=== PATIENT | male | born 1975 | race Two or more races ===

== ENCOUNTER 2016-07-31 11:15 | Inpatient (IN) | payer OTHER ==
[2016-07-31] VITALS (10 sets, daily range): BP systolic 108–115; BP diastolic 56–72
[~2016-07-31] VITALS: Ht 182.9 cm; Wt 86.2 kg
[~2016-07-31 11:15] MED LIST: ceFAZolin 2gm/50ml Premix 50 ML IVPB ONE
[2016-07-31] MEDS ORDERED: NKM (12:02)
--- NOTE | 2016-07-31 14:04 | Diagnostic Imaging Report ---
Indication: PAIN Technique: Flexion and extension views of the lumbar spine Comparison: None Findings: Bony alignment is normal. No significant change in bony alignment between flexion and extension is demonstrated. Vertebral body heights are preserved. Disc spaces are preserved. The included extraspinal soft tissues are unremarkable Impression: No evidence of ligamentous instability
[2016-07-31] MEDS ORDERED: Labetalol 5mg/ml 20ml vial IV PRN (14:15)
[2016-07-31] MEDS ORDERED: Ketorolac 60mg Inj IV PRN (14:15)
[2016-07-31] MEDS ORDERED: Norco 7.5mg/325mg tab ORAL PRN (14:15)
[2016-07-31] MEDS ORDERED: Midazolam 2mg/2ml Inj IVP PRN (14:15)
[2016-07-31] MEDS ORDERED: fentaNYL 100 mcg/2 mL IV PRN (14:15)
[2016-07-31] MEDS ORDERED: DiphenhydrAMINE 50mg/ml Inj IVP PRN (14:15)
[2016-07-31] MEDS ORDERED: LR 1000ml 1,000 ML IVLG SCH (14:15)
[2016-07-31] MEDS ORDERED: Meperidine 25mg/ml Inj IV PRN (14:15)
[2016-07-31] MEDS ORDERED: Oxycodone/Acetaminophen 5-325 ORAL PRN (14:15)
[2016-07-31] MEDS ORDERED: Hydromorphone 0.5mg/0.5ml inj IVP PRN (14:15)
[2016-07-31] MEDS ORDERED: Norco 5mg/325mg tab ORAL PRN (14:15)
[2016-07-31] MEDS ORDERED: LORazepam Inj 2mg/ml 1ml IV PRN (14:15)
[2016-07-31] MEDS ORDERED: Atropine Inj 1mg/10ml Syr IV PRN (14:15)
[2016-07-31] MEDS ORDERED: Metoclopramide 10mg/2ml Inj IVP PRN (14:15)
[2016-07-31] MEDS ORDERED: Ketorolac 30mg Inj IV PRN (14:15)
--- NOTE | 2016-07-31 14:15 | Anethesia Preoperative Eval ---
Anesthesia Pre-op PMH/ROS General Date of Evaluation: Jul 31, 2016 Time of Evaluation: 15:59 Anesthesiologist: Andrés ASA Score: ASA 1 Mallampati Score Class I : Soft palate, uvula, fauces, pillars visible Class II: Soft palate, uvula, fauces visible Class III: Soft palate, base of uvula visible Class IV: Only hard plate visible Mallampati Classification: Class II Surgeon: Rich Diagnosis: Back Pain Surgical Procedure: L1-2 Microdiscectomy, Decompression Family History: no anesthesia problems Allergies: Coded Allergies: No Known Allergies (Unverified , 07/28/16) Medications: see eMAR Past Medical History PSxH Narrative: R Knee Sx Anesthesia Pre-op Phys. Exam Physician Exam Last Vital Signs Date Time Temp Pulse Resp B/P Pulse Ox O2 Delivery O2 Flow Rate FiO2 07/31/16 11:52 97.2 76 18 115/72 96 Room Air Constitutional: NAD Neurologic: CN 2-12 intact Cardiovascular: RRR Respiratory: CTA Gastrointestinal: S/NT/ND Airway Exam Mallampati Score: Class II MO: full ROM: full Teeth: intact Anesthesia Pre-op A/P Risk Assessment & Plan Assessment: ASA 1 Plan: GA, BIS, Glidescope Status Change Before Surgery: No Pre-Antibiotics Dru Grams Ancef IV Given Within 1 Hr of Incision: Yes Time Given: 16:22 Fredo Bui MD Jul 31, 2016 14:15
--- NOTE | 2016-07-31 14:17 | Immediate Post-Op Evaluation ---
Immediate Post-Op Evalulation Immediate Post-Op Evalulation Procedure: L1-2 Microdiscectomy, Decompression Date of Evaluation: Jul 31, 2016 Time of Evaluation: 20:12 IV Fluids: 1800 Blood Products: 0 Estimated Blood Loss: 400 Urinary Output: 300 Blood Pressure Systolic: 117 Blood Pressure Diastolic: 57 Pulse Rate: 100 Respiratory Rate: 16 O2 Sat by Pulse Oximetry: 100 Temperature (Fahrenheit): 97 Pain Score (1-10): 2 Nausea: No Vomiting: No Complications 0 Patient Status: awake, reacts, patent, extubated, none Hydration Status: adequate Dru Grams Ancef IV Given Within 1 Hr of Incision: Yes Time Given: 16:22 Fredo Bui MD Jul 31, 2016 14:17
[2016-07-31] MEDS ORDERED: Thrombin 5000 units TOPIC ONE ×2 (14:25→19:08)
[2016-07-31] MEDS ORDERED: Bupivacaine w/Epi 0.5% 30ml Vial INJ ONE ×2 (14:26→16:13)
[2016-07-31] MEDS ORDERED: Bacitracin 50000 Units Vial ONE (14:26)
[2016-07-31] MEDS ORDERED: Vancomycin 1gm inj IVPB ONE (14:26)
[2016-07-31] MEDS ORDERED: Bacitracin Oint 15gm Tube TOPIC ONE (14:26)
[2016-07-31] MEDS ORDERED: Acetaminophen (Non formulary) 100 ML IV ONE (14:30)
--- NOTE | 2016-07-31 15:41 | Pre-Procedure Note/Attestation ---
Pre-Procedure Note/Attestation Complete Prior to Procedure Planned Procedure: right Procedure Narrative: L1-2 microdiscectomy Indications for Procedure Pre-Operative Diagnosis: lumbar radiculopathy Attestation I attest that I discussed the nature of the procedure; its benefits; risks and complications; and alternatives (and the risks and benefits of such alternatives ), prior to the procedure, with the patient (or the patient's legal employee's representative). I attest that, if there was a reasonable possibility of needing a blood transfusion, the patient (or the patient's legal employee's representative) was given the [facility] standardized written summary, pursuant to the Robert Sunil Blood Safety Act ([place] Health and Safety Code # 1645, as amended). I attest that I re-evaluated the patient just prior to the surgery and that there has been no change in the patient's H&P, except as documented below: MILE EMANUEL Jul 31, 2016 15:41
[2016-07-31] MEDS ORDERED: Naloxone 0.4mg/ml Inj IVP PRN (15:45)
[2016-07-31] MEDS ORDERED: HYDROmorphone 1mg/ml Carpuject SUBQ PRN (15:45)
[2016-07-31] MEDS ORDERED: fentaNYL 100 mcg/2 mL IV ONE (16:00)
[2016-07-31] MEDS ORDERED: Lidocaine 1% MPF 10mg/ml 5ml ONE (16:00)
[2016-07-31] MEDS ORDERED: Neostigmine 1mg/ml 10ml Inj ONE (16:00)
[2016-07-31] MEDS ORDERED: Glycopyrrolate 0.2mg/ml 1ml Vial ONE (16:00)
[2016-07-31] MEDS ORDERED: Dexamethasone 4mg/ml vial ONE (16:00)
[2016-07-31] MEDS ORDERED: LR 1000ml ONE (16:00)
[2016-07-31] MEDS ORDERED: Zemuron 50mg/5ml Inj IV ONE (16:00)
[2016-07-31] MEDS ORDERED: Propofol 10mg/ml 100ml btl IV ONE (16:00)
--- NOTE | 2016-07-31 19:47 | Brief Operative Note ---
Immediate Post Operative Note Operative Note Pre-op Diagnosis: lumbar radiculopathy Procedure: right L12 microdiscectomy Post-op Diagnosis: same as pre-op Findings: consistent w/pre-op dx studies Surgeon: adriana Ornamenter Hand: halina Anesthesiologist: sherry Anesthesia: general Specimen: none Complications: none Condition: stable Estimated Blood Loss: volume - 400cc Drains: hemovac Implant(s) used?: No MILE EMANUEL Jul 31, 2016 19:47
[2016-07-31] MEDS: ceFAZolin sod 1 GM in D5W 55 ML IV SCH (23:45)
[2016-08-01] VITALS: BP 100/56
[2016-08-01 04:00] VITALS: BP 104/56
[2016-08-01] MEDS: ceFAZolin sod 1 GM in D5W 55 ML IV SCH ×2 (05:04→13:30)
[2016-08-01 08:00] VITALS: BP 104/58
[2016-08-01] MEDS: Docusate 100mg cap ORAL SCH ×2 (09:02→18:33)
[2016-08-01] MEDS: Norco 5mg/325mg tab ORAL PRN ×2 (09:05→13:36)
--- NOTE | 2016-08-01 10:19 | 48 Hour Post Anesthesia Eval ---
Post Anesthesia Evaluation Procedure: L1-2 Microdiscectomy, Decompression Date of Evaluation: Aug 01, 2016 Time of Evaluation: 11:45 Blood Pressure Systolic: 104 0: 58 Pulse Rate: 91 Respiratory Rate: 18 Temperature (Fahrenheit): 98.1 O2 Sat by Pulse Oximetry: 96 Airway: patent Nausea: No Vomiting: No Pain Intensity: 4 If pain is > 6 Comment: Explained to patient to request pain meds if needed. Hydration Status: adequate Cardiopulmonary Status: Stable Mental Status/LOC: patient returned to baseline Follow-up Care/Observations: As per surgery Post-Anesthesia Complications: No anesthetic complication Follow-up care needed: N/A ESPERANZA MTZ M.D. Aug 01, 2016 10:19
--- NOTE | 2016-08-01 10:39 | Diagnostic Imaging Report ---
Indication: PAIN, intraoperative during surgical microdiscectomy Technique: Digital intraoperative images Comparison: None Findings: Surgical tool projects posterior to the L2-3 disc. Subsequent images demonstrate surgical retractor posterior to L2 Impression: Intraoperative imaging, as described
[2016-08-01 12:21] VITALS: BP 100/65
[2016-08-01] MEDS: Norco 7.5mg/325mg tab ORAL PRN (16:07)
[2016-08-01 16:08] VITALS: BP 109/53
--- NOTE | 2016-08-01 18:32 | General Progress Note ---
Progress Note Progress Note complain of surgical site pain no leg symptoms no numbness or tingling in the legs O: dressing changed inc cdi hv out 11/03 in the le calves soft and nt lt intact A: doing well pod one P: oob PT pain control dc planning MILE EMANUEL Aug 01, 2016 18:32
[2016-08-01] MEDS: HYDROmorphone 1mg/ml Carpuject IVP PRN ×2 (18:33→22:21)
[2016-08-01 20:32] VITALS: BP 108/61
[2016-08-02 04:00] VITALS: BP 116/61
[2016-08-02 08:00] VITALS: BP 112/59
[2016-08-02] MEDS: Norco 7.5mg/325mg tab ORAL PRN (08:15)
[2016-08-02] MEDS: Docusate 100mg cap ORAL SCH ×2 (08:15→17:53)
[2016-08-02 12:00] VITALS: BP 106/58
[2016-08-02 16:20] VITALS: BP 115/64
--- NOTE | 2016-08-02 17:30 | General Progress Note ---
Progress Note Progress Note lbp only 2/10 no leg pain doing much better eating and urinating well abd soft adn nt 5/5 le calves soft and nt lt intact stable dc planning pain managment dct tomorrow fu 7 days. MILE EMANUEL Aug 02, 2016 17:30
[2016-08-02 20:26] VITALS: BP 123/70
[2016-08-03] VITALS: BP 107/65
[2016-08-03 04:00] VITALS: BP 90/50
[2016-08-03 08:00] VITALS: BP 118/60
[2016-08-03] MEDS: Docusate 100mg cap ORAL SCH ×2 (08:59→18:00)
[2016-08-03 11:56] VITALS: BP 115/66
[2016-08-03 16:00] VITALS: BP 111/72
[2016-08-03 19:00] VITALS: BP 115/69
[2016-08-03] MEDS: Norco 7.5mg/325mg tab ORAL PRN (20:05)
[2016-08-04] VITALS: BP 111/68
[2016-08-04 04:00] VITALS: BP 114/68
[2016-08-04 08:00] VITALS: BP 114/65
[2016-08-04] MEDS: Norco 7.5mg/325mg tab ORAL PRN (08:44)
[2016-08-04] MEDS: Docusate 100mg cap ORAL SCH (08:44)
[2016-08-04 12:00] VITALS: BP 112/65
[2016-08-04] MEDS ORDERED: PERCOCET 5-3251 EACH ORAL (12:03)
[2016-08-04] MEDS ORDERED: SOMA350 MG PO (12:04)
--- NOTE | 2016-08-04 12:20 | General Progress Note ---
Progress Note Progress Note pt doing well no leg pain avss a and o times threee inc cdi 5/5 in the le calves soft and nt doing well dc today with pain rx fu in 7 to 10 days MILE EMANUEL Aug 04, 2016 12:20
--- NOTE | 2016-08-05 01:17 | Operative Note - Dictated ---
DATE OF OPERATION: 07/31/2016 DATE OF OPERATION: July 31, 2016. PREOPERATIVE DIAGNOSES: L1-L2 disk herniation with stenosis, nerve root impingement, and radiculopathy. POSTOPERATIVE DIAGNOSES: L1-L2 disk herniation with stenosis, nerve root impingement, and radiculopathy. PROCEDURE PERFORMED: 1. Right-sided L1-L2 inter-lumbar laminotomy, medial facetectomy, and foraminotomies with diskectomy at right L1-L2. 2. Intraoperative use of fluoroscope. 3. Intraoperative use of microscope. SURGEON: Sid Villanueva M.D. HYDROTEL OPERATOR: Adelso Pelayo M.D. ANESTHESIA: General endotracheal anesthesia. ANESTHESIOLOGIST: Fredo Bui M.D. INTRAOPERATIVE FINDINGS: Herniated nucleus pulposus at L1-L2 with impingement of the thecal sac as well as the right L2 nerve root. EBL: 400 mL. BACKGROUND INDICATIONS: The patient was a pleasant gentleman, who presented with back pain and lower extremity radicular pain, who failed nonoperative treatments. Options for above treatment was given. Risks, alternatives, and benefits were discussed with the patient at length. Risks include, but are not limited to, anesthesia complications including , medical complications including liver, kidney, and cardiopulmonary deficits, infection, bleeding, dural tear, CSF leak, nerve root injury, pars fracture, instability, reherniation as well as continued symptoms. DESCRIPTION OF OPERATION: The patient was brought to the operating room supine on a stretcher. Subsequently, appropriate IV lines were placed. A 2 g of Ancef was administered. The surgical timeout was called. Anesthesia was induced. The patient was successfully intubated. Sequential compression devices were placed on to the bilateral lower extremities. The patient was gently turned over on the Norberto frame table. All bony prominences were well padded. The abdomen was assured to lay freely. The L1-L2 interspace was positively identified via fluoroscopy. An indelible marker was used to hakan the midline. The patient was prepped and draped in the usual sterile fashion with alcohol, chlorhexidine scrub, ChloraPrep, and Ioban draping. Myself and my medical records assistant were prepped and gowned appropriately. An incision was carried out over L1-L2. Superficial hemostasis was achieved. Monopolar cautery was used for subperiosteal dissection to L1-L2 on the right side. stoneworking belt sander retractors were set into place and at this point, a radiopaque marker was placed at the interspace at L1-L2 and the L1-L2 interspaces was positively identified. Now, with the use of a high-speed drill straight curved curette, #2 through #4 Kerrison punches and inter-lumbar laminotomy, medial facetectomy, and foraminotomy were done at L1-L2 without medial retraction of the thecal sac and with minimal retraction of the traversing L2 nerve with a [place] 4 retractor the disk herniation at L1-L2 on the right side was visualized and with a #11 blade, a horizontal slit incision was carried out at L1-L2. With pituitary rongeurs and Bang rongeur as well as an Ebstein probed, a diskectomy was carried out on the right side at L1-L2 until before the canal was flapped and complete decompression of the thecal sac, conus medullaris and the L2 nerve root was accomplished. A foraminotomy for the exiting L1 nerve root was also done with complete decompression of the foramina, lateral recess as well as central canal. Hemostasis was achieved by bipolar cautery as well as FloSeal and Gelfoam and thrombin. There was engorged epidural veins at L1-L2, which was controlled with the bipolar cautery. At this point, triple antibiotic solution was used and copious amounts for complete irrigation of the subfascial and suprafascial layers. A subfascial Hemovac drain was placed. The dorsal lumbar fascia was closed with #1 Vicryl sutures in a watertight interrupted fashion. The subdermal and subcuticular layers were closed with 2-0 Vicryl. The skin was closed with Dermabond. Sterile dressing tape was placed. The patient was turned supine, was extubated in stable condition and found to be neurovascularly intact. He was admitted to the hospital for monitoring. Sid Villanueva M.D. DR: STEVEN JOB#: [id number] CC:
--- NOTE | 2016-08-07 08:45 | Discharge Summary ---
Discharge Summary Hospital Course Date of Admission Jul 31, 2016 at 11:15 Date of Discharge Aug 04, 2016 at 14:53 Admitting Diagnosis lumbar radiculopathy Reason for Hospitalization: for elective surgery FREDY Garcia is a 41 year old male who was admitted on Jul 31, 2016 at 11:15 for Lumbar Radiculopathy and elective surgery L1-2 lumbar microdiscectomy Procedures s/p 07/31- Right-sided L1-L2 inter-lumbar laminotomy, medial facetectomy, and foraminotomies with diskectomy at right L1-L2. Hospital Course patient undergone elective surgery 07/31 for lumbar radiculopathy Course of recover was uneventful pain management provided and controlled ( scripts provided upon discharge) worked with PT/OT neurovascular intact no leg pain, muscle strength 5/5 BLE , calves soft nontender incision clean dry intact tolerated diet voided freely surgeon cleared for discharge fup with surgeon in 7-10 days DISCHARGE DIAGNOSIS lumbar radiculopathy /with L1-L2 disk herniation with stenosis, nerve root impingement, and radiculopathy s/p L1-2 microdiscectomy postoperative pain -controlled . Discharge Medications Continued Medications: Carisoprodol* (Soma*) 350 Mg Tablet 350 MG PO Q8HR PRN for For Pain, TAB Oxycodone/Acetaminophen 5-325* (Percocet 5-325 Mg Tablet*) 1 Each Tablet 1 TAB ORAL Q6H PRN for For Pain, #30 TAB 0 Refills Discontinued Medications: No Known Medications* (NKM - No Known Medications*) . 0 ., 0 Refills Discharge Condition Upon Discharge: stable Discharge Disposition Patient was discharged to Home (01) Discharge Diagnoses: Discharge Instructions Discharge Instructions Special Instructions I have been assigned to complete a D/C Summary on this account. I was not involved in the patient management Heide Grajeda NP ([place]) Aug 07, 2016 08:45
== END 2016-08-04 14:53 | disposition home or self-care (01) | DRG 520 ==
LOC: SDSOVERFLO 11:15 → 3E 21:25
PROC: 01NB0ZZ Release Lumbar Nerve, Open Approach (ICD-10-PCS; principal; 2016-07-31 15:30)
PROC: 0SB20ZZ Excision of Lumbar Vertebral Disc, Open Approach (ICD-10-PCS; principal; 2016-07-31 15:30)
DX: M51.16 Intervertebral disc disorders with radiculopathy, lumbar region (principal); K76.0 Fatty (change of) liver, not elsewhere classified; M48.06 Spinal stenosis, lumbar region; V89.2XXS Person injured in unspecified motor-vehicle accident, traffic, sequela; G89.18 Other acute postprocedural pain
CPT/HCPCS: 36415; 72020; 76000; 86850; 86900; 86901; 87081; 94003; 94150; J2405; J2710